=== PATIENT | female | born 1995 | race Caucasian/White ===

== ENCOUNTER 2016-12-27 22:33 | Outpatient (CLI) | payer OTHER ==
[2017-04-10] MEDS ORDERED: COLACE 100MG C100 MG PO (20:29)
== END 2016-12-28 09:57 | disposition home or self-care (01) ==
LOC: GENOP 22:33
DX: O46.8X2 Other antepartum hemorrhage, second trimester (principal); Z3A.20 20 weeks gestation of pregnancy
CPT/HCPCS: 76815